=== PATIENT | female | born 1970 | race Two or more races ===

== ENCOUNTER 2020-10-28 10:57 | Emergency (ER) | payer OTHER ==
[~2020-10-28] VITALS: Ht 167.6 cm; Wt 63.5 kg
[2020-10-28] MEDS ORDERED: ATORVASTATIN CA20 MG PO (11:21)
[2020-10-28] MEDS ORDERED: LAMICTAL200 MG PO (11:21)
== END 2020-10-28 13:37 | disposition home or self-care (01) ==
LOC: ER 10:57
DX: S90.121A Contusion of right lesser toe(s) without damage to nail, initial encounter (principal); W22.8XXA Striking against or struck by other objects, initial encounter; Y93.89 Activity, other specified; Y92.89 Other specified places as the place of occurrence of the external cause; Y99.8 Other external cause status